=== PATIENT | male | born 1940 | race Caucasian/White ===

== ENCOUNTER → 2016-04-28 | Outpatient (CLI) | payer OTHER ==
[~2016-04-28] MED LIST: AMLO10CA PO; ASCA500 PO; ASPCH81; CALC1TAB9 PO; GLUC10007 PO; OMEG12006 PO; OPTIRAY 320 IV PRN; QVRINH80; SELE1TAB5 PO; SILD100T PO; SIMV40TA2 PO; lycopene PO; selenium PO
--- NOTE | 2016-04-28 10:02 | DIAGNOSTIC IMAGING REPORT ---
CT ANGIOGRAM OF THE BRAIN COMBO CLINICAL HISTORY: Follow-up aneurysm. COMPARISON STUDY: CT angiogram of the brain dated 04/29/2014 TECHNIQUE: Before and following the IV administration of 119 cc of Optiray 320, CT angiogram of the brain was performed from the skull base to the vertex. Images are reviewed in the axial, sagittal, and coronal planes. 3-D MIPS images are created and assessed. IV contrast was administered without complication. CT DOSE: 1027.65 mGy.cm FINDINGS: Brain parenchyma: There are age-related involutional changes noting mild subcortical and periventricular microangiopathic disease. There is no hemorrhage, mass effect, or evidence of acute territorial ischemia by CT criteria. There is no evidence of enhancing mass lesion on the angiogram phase images. No extra-axial fluid collection is seen. Monk-white matter differentiation is preserved. Ventricles, sulci, and cisterns: Prominent secondary to involutional change. CT angiogram of the brain: There is atherosclerotic calcification of the cavernous carotid and vertebral arteries. The [place] is developmentally complete. There are small bilateral posterior communicating arteries. The internal carotid arteries are patent at the skull base. There is atherosclerotic plaque and irregularity within the cavernous carotid arteries. No high-grade stenosis is seen. The anterior and middle cerebral arteries are clear. The vertebrobasilar system and posterior cerebral arteries are patent. The left vertebral artery is dominant. There is atherosclerotic irregularity identified in the diminutive right vertebral artery. 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 This is best seen on axial image #85. No additional aneurysm is seen. There is no high-grade stenosis or focal vessel cutoff identified throughout the intracranial circulation. Dural sinuses: Clear as visualized. Orbits: The bony orbits are intact. The orbital contents are normal as visualized. Sinuses and mastoids: The visualized paranasal sinuses are clear. The mastoid air cells are well pneumatized. Calvarium: Unremarkable. IMPRESSION: 1. There is no hemorrhage, mass effect, or evidence of acute territorial ischemia by CT criteria. 2. 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 3. No additional aneurysm is identified. No vessel occlusion is seen. 4. Additional changes as above. Electronically signed by: Agustin Jiang M.D. 04/28/2016 10:01 AM Dictated Date/Time: 04/28/2016 9:18 AM
== END | disposition home or self-care (01) ==
LOC: C.CTS 08:51
PROVIDERS: ATTEND Psychiatry & Neurology Neurology
DX: I67.1 Cerebral aneurysm, nonruptured (principal)

== ENCOUNTER → 2016-07-04 | Outpatient (CLI) | payer OTHER ==
[~2016-07-04] MED LIST changes: -OPTIRAY 320 IV PRN
== END | disposition home or self-care (01) ==
LOC: C.LAB 09:19
PROVIDERS: ATTEND Urology
DX: C61 Malignant neoplasm of prostate (principal)

== ENCOUNTER → 2016-10-30 | Outpatient (CLI) | payer OTHER | END | disposition home or self-care (01) | LOC: C.LAB 09:18 | PROVIDERS: ATTEND Urology | DX: C61 Malignant neoplasm of prostate (principal) ==

== ENCOUNTER → 2017-05-08 | Outpatient (CLI) | payer OTHER | END | disposition home or self-care (01) | LOC: C.LAB 08:34 | PROVIDERS: ATTEND Urology | DX: C61 Malignant neoplasm of prostate (principal) ==

== ENCOUNTER → 2017-05-18 | Outpatient (CLI) | payer OTHER | END | disposition home or self-care (01) | LOC: C.LABSPEC 14:41 | PROVIDERS: ATTEND Urology | DX: C61 Malignant neoplasm of prostate (principal); R39.9 Unspecified symptoms and signs involving the genitourinary system ==

== ENCOUNTER → 2017-10-25 | Outpatient (CLI) | payer OTHER ==
[~2017-10-25] MED LIST changes: -ASCA500 PO; +ASCO500T3 PO; -ASPCH81; +ASPI81TA28 PO; +BECL80AE7 INH; +COEN1CAP7 PO; -GLUC10007 PO; +LEVO100T PO; +MAGN250T3 PO; +PRVC/40 PO; +PYRI60TA3 PO; -QVRINH80; -SELE1TAB5 PO; -SILD100T PO; -SIMV40TA2 PO
== END | disposition home or self-care (01) ==
LOC: C.LAB 14:45
PROVIDERS: ATTEND Psychiatry & Neurology Neurology
DX: C61 Malignant neoplasm of prostate (principal); G47.00 Insomnia, unspecified

== ENCOUNTER 2023-07-31 10:45 | Inpatient (IN) ==
[2023-07-31 11:38] LABS: Basophils # (auto) 0.02 K/uL (0.00-0.20); Basophils % (auto) 0.2 %; Eosinophils # (auto) 0.02 K/uL (0.00-0.50); Eosinophils % (auto) 0.2 %; Hematocrit (blood only) 36.2 % (42.0-52.0); Hemoglobin 11.1 g/dl (14.0-18.0); Immature Granulocytes # (auto) 0.05 K/uL (0.01-0.20); Immature Granulocytes % (auto) 0.5 %; Lymphocytes % (auto) 11.4 %; Mean Corpuscular Hemoglobin 27.2 pg (25.0-34.0); Mean Corpuscular Hgb Conc 30.7 g/dL (32.0-36.0); Mean Corpuscular Volume 88.7 fL (80.0-100.0); Mean Platelet Volume 10.6 fL (9.4-12.4); Monocytes # (auto) 0.87 K/uL (0.11-0.59); Monocytes % (auto) 8.3 %; Neutrophils # (auto) 8.35 K/uL (1.40-6.50); Neutrophils % (auto) 79.4 %; Platelet Count 203 K/uL (130-400); RDW Coefficient of Variation 13.5 % (11.5-14.5); RDW Standard Deviation 43.7 fL (36.4-46.3); Red Blood Count 4.08 M/uL (4.70-6.10); White Blood Count 10.51 K/ul (4.8-10.8)
[2023-07-31 11:44] LABS: Prothrombin Time 10.7 Seconds (9.0-12.0)
[2023-07-31 11:56] LABS: Albumin Globulin Ratio 1.3 (0.9-2); BUN Creatinine Ratio 22.1 (10-20); Bilirubin,Total 0.6 mg/dl (0.2-1.0); Calcium 9.8 mg/dl (8.6-10.3); Est GFR (African American) 48.3 ml/min; Est GFR (Non-African American) 41.7 ml/min; Potassium 4.1 mmol/L (3.5-5.1)
--- NOTE | 2023-07-31 12:13 | Ultrasound Report ---
RIGHT LOWER EXTREMITY VENOUS DOPPLER CLINICAL HISTORY: Leg deep vein thrombosis (DVT) suspected . Right foot pain. COMPARISON STUDY: No previous studies for comparison. TECHNIQUE: Sonography of the deep venous system of the right lower extremity was performed. Compress ion and augmentation were evaluated. FINDINGS: The right common femoral, superficial femoral and popliteal veins were compressible. Augme ntation was normal. Flow was shown within the deep calf vessels. There is a small elongated right pop liteal fluid collection that measures 6.7 x 1.2 x 3.4 cm. IMPRESSION: 1. No evidence of deep venous thrombus within the right lower extremity. 2. Small right popliteal cyst. ACT 112: Negative or not required by law. Electronically signed by: Wero Parks M.D. 07/31/2023 12:11 PM
--- NOTE | 2023-07-31 12:15 | XRay Report ---
XR ankle RT min 3V routine CLINICAL HISTORY: swelling COMPARISON: Right ankle radiographs September 09, 2020. MRI of the right ankle September 16, 2020. FINDINGS: Alignment of the right ankle is anatomic. There is no acute fracture. Ankle soft tissue sw elling is greatest laterally. Talar dome is intact. Severe joint space narrowing of the subtalar join t is noted with possible fusion of the posterior facet. There is a small plantar calcaneal spur. IMPRESSION: 1. No fracture or dislocation within the right ankle. 2. Right ankle soft tissue swelling. 3. Severe subtalar joint osteoarthritis. ACT 112: Negative or not required by law. Electronically signed by: Wero Parks M.D. 07/31/2023 12:14 PM
--- NOTE | 2023-07-31 12:32 | Emergency Department Note ---
Impression & Plan Osteomyelitis, Cellulitis ED Provider Note NAME: IVETH GRANGER AGE: 82 SEX: M : 1940 ARRIVES VIA: Walk-In INFORMANT: [Patient][] ED PROVIDER(S): [Agustin Biggs MD] CHIEF COMPLAINT: Foot pain HISTORY OF PRESENT ILLNESS: The patient is an 82-year-old male with myasthenia gravis. The patient states that he has had some swelling of the right foot/leg for some time. Lately, he has noticed some erythema. He has a blister to the tip of the third toe. The patient is not currently on antibiotics. He has had a previous partial amputation of the right second toe. He states that there was infection that required the amputation. The patient has felt a bit weaker and washed out lately, he has not had fever, no cough or congestion. No chest pain, no vomiting. PMHx/PSHx/Social Hx: See Below PHYSICAL EXAM: GENERAL: Patient is in no acute distress. HEENT: No acute trauma, normocephalic atraumatic, mucous membranes moist, no nasal congestion. NECK: No stridor, no adenopathy, no meningismus, trachea is midline. LUNGS: Clear to auscultation bilaterally, no wheeze, no rhonchi, breath sounds equal. HEART: Without murmurs gallops or rubs, regular rate and rhythm. Heart tones are distant. ABDOMEN: Soft, nontender, no peritonitis. EXTREMITIES: No cyanosis. The patient does have a blister to the tip of the right third toe. There is some erythema spreading from this toe up the dorsum of the foot. There is warmth present. The right lower extremity is edematous when compared to the left. NEUROLOGIC: Oriented x 3, no acute motor or sensory deficits, no focal weakness. SKIN: No jaundice, no diaphoresis. DIFFERENTIAL DIAGNOSIS: Osteomyelitis, cellulitis, bacteremia, DVT, fracture, among others. EMERGENCY DEPARTMENT PROCEDURES: MEDICAL DECISION MAKING: There is no leukocytosis. The patient is anemic however, this appears to be a chronic issue for him. There was a normal platelet count. INR was not elevated. There was an elevation to the creatinine however, the patient has had some renal insufficiency previous. There was no electrolyte abnormality in need of emergent correction. No concerning liver enzyme elevation. Right ankle film did not show fracture, some arthritis was seen. Right foot CT does show osteomyelitis to the right third toe. Right lower extremity ultrasound did not show DVT. On exam, the patient did have a cellulitis of the right foot. He had an ulcer to the right third toe. A culture of the fluid seeping from the right third toe was sent for analysis. The patient was given IV Zosyn as antibiotic coverage. The patient is in need of a hospital stay. He has a cellulitis with an underlying osteomyelitis. He likely will require some type of surgical intervention. I spoke with the patient and case management, the on-call hospitalist was consulted. Prior/Outside records/notes reviewed: None Imaging/x-ray results per my interpretation: Right ankle film shows arthritis, no fracture or bony dislocation. Chronic Medical/Social conditions affecting care: Advanced age. Care/Management discussed with: Case management, the on-call hospitalist. Level of care consideration(s): After review of the information above and other included data: --I believe the patient requires escalation of care to admission DISPOSITION: Admission Past Med/Surg History Problem List (Updated 07/31/23 @ 14:27 by Agustin Biggs MD) Cellulitis (Acute) Osteomyelitis (Acute) Cellulitis of right foot Osteomyelitis of third toe of right foot Myasthenia gravis Seizure-like activity Positive DALLIN (antinuclear antibody) Dementia Ocular myasthenia gravis (Chronic) Hypothyroidism (Chronic) Cerebrovascular disease (Chronic) Cerebral aneurysm (Chronic) Myasthenia gravis (Chronic) Malignant neoplasm of prostate Sialorrhea Incontinence Urge and stress incontinence (Acute) Third nerve palsy (Acute) Impotence, organic (Acute) Neuromuscular disease or syndrome (Acute) Myopathy (Acute) Diplopia (Acute) Bulbar myasthenia gravis (Acute) Medical History Actinic keratosis Asthma Cough Renal neoplasm UTI symptoms Surgical History History of surgical removal of pilonidal cyst H/O foot surgery Hx of prostatectomy History of appendectomy Family History Sister Bulbar polio Hypercholesterolemia Mother Cardiac disorder Son Glioma Social History Smoking Status: Never smoker Hx Alcohol Use: Yes marital status: current occupational status: retired Feels Safe at Home: Yes Allergies Allergies Allergy/AdvReac Type Severity Reaction Status Date / Time Sulfa (Sulfonamide Allergy Intermediate ITCHY Verified 07/04/23 14:01 Antibiotics) Home Meds Home Medications Medication Instructions Recorded Confirmed calcium citrate 315 mg 1 tab PO DAILY 01/27/19 07/31/23 calcium-vitamin D3 6.25 mcg (250 unit) tablet (Citracal + Vitamin D Maximum) omega-3 fatty acids 500 mg capsule 500 mg PO DAILY 01/27/19 07/31/23 amlodipine 10 mg-benazepril 20 mg 1 cap PO DAILY 04/06/20 07/31/23 capsule leuprolide (4 month) 30 mg (4 30 mg IM Q16W #0 ea 04/06/20 07/31/23 month) intramuscular syringe kit levothyroxine 100 mcg tablet 100 mcg PO DAILY 04/06/20 07/31/23 mecobalamin (vitamin B12) 1,000 1,000 mcg sublingual DAILY 11/01/20 07/31/23 mcg disintegrating tablet,sublingual pravastatin 40 mg tablet 80 mg PO DAILY 06/23/21 07/31/23 prevagen 1 cap PO UD 06/23/21 07/31/23 pyridostigmine bromide 60 mg tablet 60 mg PO UD 07/31/23 07/31/23 Previous Rx's Medication Instructions Recorded memantine 10 mg tablet 10 mg PO BID 90 days #180 tabs 04/02/23 sertraline 25 mg tablet (Zoloft) 25 mg PO DAILY 90 days #90 tabs 04/02/23 mycophenolate mofetil 500 mg 500 mg PO BID 90 days #180 tabs 06/13/23 tablet (CellCept) prednisone 10 mg tablet 10 mg PO DAILY #90 tabs 06/13/23 pyridostigmine bromide 180 mg 180 mg PO BID #180 tabs 06/29/23 tablet,extended release Results & Data (ED) Vital Signs Vital Signs - 24 hr 07/31/23 10:48 Temperature 37 C Temperature Source Oral Pulse Rate 80 Respiratory Rate 16 Respiratory Depth Normal Blood Pressure 125/89 Blood Pressure Mean 101 Pulse Oximetry 98 Oxygen Delivery Method Room Air Sepsis Recent Fever Within 48 Hours No Sepsis New/Unexplained Change in Mental Status No Sepsis Action Taken by Nursing No Action Required Home Medications Current Medication List: was personally reviewed by me Laboratory Data Attestation: I reviewed the patient's lab results. 07/31/23 11:05 07/31/23 11:05 Lab Results 07/31/23 Range/Units 11:05 WBC 10.51 (4.8-10.8) K/ul RBC 4.08 L (4.70-6.10) M/uL Hgb 11.1 L (14.0-18.0) g/dl Hct 36.2 L (42.0-52.0) % MCV 88.7 (80.0-100.0) fL MCH 27.2 (25.0-34.0) pg MCHC 30.7 L (32.0-36.0) g/dL RDW Std Deviation 43.7 (36.4-46.3) fL RDW Coeff of Jon 13.5 (11.5-14.5) % Plt Count 203 (130-400) K/uL MPV 10.6 (9.4-12.4) fL Immature Gran % (Auto) 0.5 % Neut % (Auto) 79.4 % Lymph % (Auto) 11.4 % Storey % (Auto) 8.3 % Eos % (Auto) 0.2 % Baso % (Auto) 0.2 % Neut # (Auto) 8.35 H (1.40-6.50) K/uL Lymph # (Auto) 1.20 (1.20-3.40) K/uL Storey # (Auto) 0.87 H (0.11-0.59) K/uL Eos # (Auto) 0.02 (0.00-0.50) K/uL Baso # (Auto) 0.02 (0.00-0.20) K/uL Immature Gran # (Auto) 0.05 (0.01-0.20) K/uL PT 10.7 (9.0-12.0) Seconds INR 1.0 (0.9-1.1) Sodium 136 (136-145) mmol/L Potassium 4.1 (3.5-5.1) mmol/L Chloride 102 (98-107) mmol/L Carbon Dioxide 27 (21-32) mmol/L Anion Gap 7 (3-11) BUN 34 H (6-23) mg/dl Creatinine 1.54 H (0.6-1.4) mg/dl Est Cr Clr Drug Dosing 45.0 ml/min Est GFR ( Amer) 48.3 ml/min Est GFR (Non-Af Amer) 41.7 ml/min BUN/Creatinine Ratio 22.1 H (10-20) Glucose 134 H (70-99(Fasting)) mg/dl Calcium 9.8 (8.6-10.3) mg/dl Total Bilirubin 0.6 (0.2-1.0) mg/dl AST 17 (13-39) U/L ALT 13 (7-52) U/L Alkaline Phosphatase 48 (34-104) U/L B-Natriuretic Peptide 226 H (0-100) pg/ml Total Protein 7.0 (6.0-8.3) gm/dl Albumin 4.0 (3.4-5.0) gm/dl Globulin 3.0 (2.5-4.0) gm/dl Albumin/Globulin Ratio 1.3 (0.9-2) Imaging Data Radiologist's Impression: Venous Doppler Study 07/31/23 10:53 RIGHT LOWER EXTREMITY VENOUS DOPPLER CLINICAL HISTORY: Leg deep vein thrombosis (DVT) suspected . Right foot pain. COMPARISON STUDY: No previous studies for comparison. TECHNIQUE: Sonography of the deep venous system of the right lower extremity was performed. Compression and augmentation were evaluated. FINDINGS: The right common femoral, superficial femoral and popliteal veins were compressible. Augmentation was normal. Flow was shown within the deep calf vessels. There is a small elongated right popliteal fluid collection that measures 6.7 x 1.2 x 3.4 cm. IMPRESSION: 1. No evidence of deep venous thrombus within the right lower extremity. 2. Small right popliteal cyst. ACT 112: Negative or not required by law. Electronically signed by: Wero Parks M.D. 07/31/2023 12:11 PM Ankle X-Ray 07/31/23 10:57 XR ankle RT min 3V routine CLINICAL HISTORY: swelling COMPARISON: Right ankle radiographs September 09, 2020. MRI of the right ankle September 16, 2020. FINDINGS: Alignment of the right ankle is anatomic. There is no acute fracture. Ankle soft tissue swelling is greatest laterally. Talar dome is intact. Severe joint space narrowing of the subtalar joint is noted with possible fusion of the posterior facet. There is a small plantar calcaneal spur. IMPRESSION: 1. No fracture or dislocation within the right ankle. 2. Right ankle soft tissue swelling. 3. Severe subtalar joint osteoarthritis. ACT 112: Negative or not required by law. Electronically signed by: Wero Parks M.D. 07/31/2023 12:[address] 07/31/23 12:28 CT foot RT wo con HISTORY: 82 years-old Male poss osteo, distal foot, 3rd toe acute pain and swelling of the right foot with possible osteomyelitis of the third toe. COMPARISON: Right ankle radiographs of same day, right foot radiographs 09/09/2020, MRI right foot 09/16/2020 TECHNIQUE: Multiple axial CT images of the right foot were obtained without IV contrast. A dose lowering technique was used consistent with the principals of YANET. FINDINGS: There is skin thickening with diffuse subcutaneous edema. Atrophy of the intrinsic musculature. Tendons and ligaments are not well evaluated by CT technique. Arterial calcifications. No drainable fluid collections. Subcutaneous edema with possible distal ulcer of the distal third toe. Demineralized appearance to the bones. There is severe joint space narrowing with chronic appearing articular and marginal erosions of the first DIP joint. Large subcortical cyst versus benign lucent lesion of the navicular. There is cortical irregularity involving the distal and dorsal margins of the third distal phalanx with adjacent punctate bone fragments. No acute fracture or dislocation. Partial amputation of the distal second toe at the level of the PIP joint redemonstrated. IMPRESSION: 1. Ulcer with probable osteomyelitis of the third distal phalanx. 2. Diffuse subcutaneous edema may represent cellulitis, venous stasis or lymphedema. 3. No drainable fluid collections. ACT 112: Negative or not required by law. The above report was generated using voice recognition software. It may contain grammatical, syntax or spelling errors. Electronically signed by: Rickey Griffin M.D. 07/31/2023 1:05 PM Discharge Plan Visit Data Chief Complaint: Foot Injury/Pain Stated Complaint: RIGHT FOOT PAIN ED Provider: Agustin Biggs Discharge Problem: Osteomyelitis, Cellulitis Patient Disposition: Admitted As Inpatient Condition: Fair Forms Stand Alone Forms: [facility] Prescriptions Prescriptions: No Action memantine 10 mg tablet 10 mg PO BID 90 Days Qty: 180 3RF sertraline [Zoloft] 25 mg tablet 25 mg PO DAILY 90 Days Qty: 90 3RF pyridostigmine bromide 180 mg tablet extended release 180 mg PO BID Qty: 180 1RF mecobalamin (vitamin B12) 1,000 mcg tablet,disintegrating 1,000 mcg sublingual DAILY Rx Instructions: place tablet under tongue and allow to dissolve for at least30 secs before swallowing mycophenolate mofetil [CellCept] 500 mg tablet 500 mg PO BID 90 Days Qty: 180 3RF prednisone 10 mg tablet 10 mg PO DAILY Qty: 90 3RF prevagen tablet 1 cap PO UD Rx Instructions: otc. as directed calcium citrate-vitamin D3 [Citracal + D Maximum] 315 mg- 250 unit tablet 1 tab PO DAILY omega-3 fatty acids 500 mg capsule 500 mg PO DAILY amlodipine-benazepril 10-20 mg capsule 1 cap PO DAILY leuprolide (4 month) 30 mg syringe kit 30 mg IM Q16W Qty: 0 levothyroxine 100 mcg tablet 100 mcg PO DAILY pravastatin 40 mg tablet 80 mg PO DAILY pyridostigmine bromide 60 mg tablet 60 mg PO UD Rx Instructions: Fill history 07/2022 for 60 mg po qid Referrals Referrals: Gordon Palma MD [Primary Care Provider] - Discharge Problem: Osteomyelitis Qualifiers: Osteomyelitis type: unspecified type Osteomyelitis location: foot Laterality: r ight Qualified Code(s): M86.9 - Osteomyelitis, unspecified Cellulitis Qualifiers: Site of cellulitis: extremity Site of cellulitis of extremity: lower extremity Laterality: right Qualified Code(s): L03.115 - Cellulitis of right lower limb
--- NOTE | 2023-07-31 13:07 | CT Scan Report ---
CT foot RT wo con HISTORY: 82 years-old Male poss osteo, distal foot, 3rd toe acute pain and swelling of the right curt t with possible osteomyelitis of the third toe. COMPARISON: Right ankle radiographs of same day, right foot radiographs 09/09/2020, MRI right foot 09/16 TECHNIQUE: Multiple axial CT images of the right foot were obtained without IV contrast. A dose lowering technique was used consistent with the principals of YANET. FINDINGS: There is skin thickening with diffuse subcutaneous edema. Atrophy of the intrinsic musculature. Tendo ns and ligaments are not well evaluated by CT technique. Arterial calcifications. No drainable fluid collections. Subcutaneous edema with possible distal ulcer of the distal third toe. Demineralized appearance to the bones. There is severe joint space narrowing with chronic appearing a rticular and marginal erosions of the first DIP joint. Large subcortical cyst versus benign lucent le geetha of the navicular. There is cortical irregularity involving the distal and dorsal margins of the third distal phalanx with adjacent punctate bone fragments. No acute fracture or dislocation. Partial amputation of the distal second toe at the level of the PIP joint redemonstrated. IMPRESSION: 1. Ulcer with probable osteomyelitis of the third distal phalanx. 2. Diffuse subcutaneous edema may represent cellulitis, venous stasis or lymphedema. 3. No drainable fluid collections. ACT 112: Negative or not required by law. The above report was generated using voice recognition software. It may contain grammatical, syntax o r spelling errors. Electronically signed by: Rickey Griffin M.D. 07/31/2023 1:05 PM
[2023-07-31] MEDS ORDERED: VANCOMYCIN CONSULT ACTIVE PRN (13:35)
--- NOTE | 2023-07-31 13:35 | History & Physical Report ---
Date of Service July 31, 2023 Assessment & Plan (1) Osteomyelitis of third toe of right foot: Plan: -Admit to med/surge -Currently stable and non-toxic appearing -Presented to the ED with progressive right foot/3rd toe swelling, erythema, and pain since a blister opened in his right 3rd toe approximately 2 weeks ago -Patient noted to have soft tissue swelling of the right foot on xray of the ankle and likely OM of the distal right 3rd toe on CT of the right foot wo con -Patient does not have a hx of DM but is immunocompromised as he is on chronic prednisone and CellCept for Myasthenias gravis -Blood cultures and culture from the right third toe have been collected -Will start with Vancomycin and Ceftriaxone for now as he is stable and non- toxic appearing >If he were to clinically decline would broaden abx -Will obtain arterial doppler of the RLE with BOZENA -Spoke with Dr. Sarah Sampson of Podiatry, she will see the patient shortly, consult placed -Will make NPO at midnight in case of OR tomorrow -Will obtain CXR and ECG if pre-operative clearance is needed -Will obtain procal and ESR -Pain control with tylenol for now -If patient requires OR may need stress dosed steroids -HH diet -SQ lovenox for DVT PPX -AM CBC, BMP, mag (2) Cellulitis of right foot: Plan: -Continue Ceftriaxone and Vancomycin for now -Follow infectious workup (3) Myasthenia gravis: Plan: -Will continue prednisone, Cellcept, and Mestinon (4) Dementia: Plan: -Continue memantine (5) Hypothyroidism: Plan: -Continue levothyroxine Plan The patient was discussed with Dr. Bustamante at the time of the admission History of Present Illness Chief Complaint: right foot swelling/erythema Primary Care Provider: Gordon Palma MD Ezio is an 82 year old male with a PMH significant for Myasthenias gravis (on CellCept, low-dose prednisone, and Mestinon), Dementia, prostate cancer status post radical retropubic prostatectomy May 1999 who subsequently had a recurrence with radiation in 2007, HTN, hypothyroidism who presented to the [facility] ED on 07/31/23 with complaints of progressive swelling, erythema, and pain of the right foot. He remained stable in the ED. Labs including CBC and CMP were unremarkable, BNP was elevated at 226. Venous doppler of the RLE was negative for DVT. Xray of the right ankle was read as "1. No fracture or dislocation within the right ankle. 2. Right ankle soft tissue swelling. 3. Severe subtalar joint osteoarthritis.". And CT of the right foot wo con was read as "1. Ulcer with probable osteomyelitis of the third distal phalanx. 2. Diffuse subcutaneous edema may represent cellulitis, venous stasis or lymphedema. 3. No drainable fluid collections.". Prior to admission the patient was ordered a dose of zosyn. AT the time of the exam the patient was sitting in bed in no acute distress with his bedside, history was obtained from both. 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 Approximately 2-3 weeks ago he started to develop a blister on the distal aspect of his right 3rd phalanx. This subsequently opened and has become progressively more swollen, tender, and erythematous. Denies pain at rest but significant pain with ambulation. Denies recent fever, chills, chest pain, abd pain,nausea, vomiting, diarrhea, dysuria, hematuria, melena, and recent trauma. He is a full code and his is his POA. Please refer to Dr. Bustamante's attestation for any changes to the treatment plan Allergies Allergy/AdvReac Type Severity Reaction Status Date / Time Sulfa (Sulfonamide Allergy Intermediate ITCHY Verified 07/04/23 14:01 Antibiotics) Home Medications Medication Instructions Recorded Confirmed Type calcium citrate 315 mg 1 tab PO DAILY 01/27/19 07/31/23 History calcium-vitamin D3 6.25 mcg (250 unit) tablet (Citracal + Vitamin D Maximum) omega-3 fatty acids 500 mg capsule 500 mg PO DAILY 01/27/19 07/31/23 History amlodipine 10 mg-benazepril 20 mg 1 cap PO DAILY 04/06/20 07/31/23 History capsule leuprolide (4 month) 30 mg (4 30 mg IM Q16W #0 ea 04/06/20 07/31/23 History month) intramuscular syringe kit levothyroxine 100 mcg tablet 100 mcg PO DAILY 04/06/20 07/31/23 History mecobalamin (vitamin B12) 1,000 1,000 mcg sublingual DAILY 11/01/20 07/31/23 History mcg disintegrating tablet,sublingual pravastatin 40 mg tablet 80 mg PO DAILY 06/23/21 07/31/23 History prevagen 1 cap PO UD 06/23/21 07/31/23 History memantine 10 mg tablet 10 mg PO BID 90 days #180 tabs 04/02/23 07/31/23 Rx sertraline 25 mg tablet (Zoloft) 25 mg PO DAILY 90 days #90 tabs 04/02/23 07/31/23 Rx mycophenolate mofetil 500 mg 500 mg PO BID 90 days #180 tabs 06/13/23 07/31/23 Rx tablet (CellCept) prednisone 10 mg tablet 10 mg PO DAILY #90 tabs 06/13/23 07/31/23 Rx pyridostigmine bromide 180 mg 180 mg PO BID #180 tabs 06/29/23 07/31/23 Rx tablet,extended release pyridostigmine bromide 60 mg tablet 60 mg PO UD 07/31/23 07/31/23 History Past Med/Surg History Problem List (Updated 07/31/23 @ 14:05 by Gildardo Vargas PA-C) Cellulitis of right foot Osteomyelitis of third toe of right foot Myasthenia gravis Seizure-like activity Positive DALLIN (antinuclear antibody) Dementia Ocular myasthenia gravis (Chronic) Hypothyroidism (Chronic) Cerebrovascular disease (Chronic) Cerebral aneurysm (Chronic) Myasthenia gravis (Chronic) Malignant neoplasm of prostate Sialorrhea Incontinence Urge and stress incontinence (Acute) Third nerve palsy (Acute) Impotence, organic (Acute) Neuromuscular disease or syndrome (Acute) Myopathy (Acute) Diplopia (Acute) Bulbar myasthenia gravis (Acute) Medical History Myasthenia gravis Actinic keratosis Asthma Cough Renal neoplasm UTI symptoms Surgical History History of surgical removal of pilonidal cyst H/O foot surgery Hx of prostatectomy History of appendectomy Family History Sister Bulbar polio Hypercholesterolemia Mother Cardiac disorder Son Glioma Social History Smoking Status: Never smoker Hx Alcohol Use: Yes marital status: current occupational status: retired Feels Safe at Home: Yes Physical Exam Physical Exam: Physical Exam: General: In no acute distress, stated age, well-nourished, good hygiene HEENT: Normocephalic, atraumatic, no scleral icterus, pupils around round, symmetrical, and reactive to light, moist mucus membranes, trachea midline, no thyromegaly Chest/Pulm: No respiratory distress, symmetrical chest expansion, clear breath sounds throughout Cardiac: RRR, no murmurs noted Abdomen: Negative for ascites and bruising, normoactive bowel sounds, soft, non-tender to palpation throughout Musculoskeletal: Distal aspect of right 3rd toe has an open ulcer with purulent drainage and erythema tracking proximally, no acute trauma noted Extremities: Radial, dorsalis pedis, and posterior tibial pulses are intact and symmetrical, swelling of the right foot due to current cellulitis Skin: 3rd right toe findings as described above, patient also with erythema and swelling of the skin from the distal right foot to the mid right foot, no erythema noted in the right ankle Neuro: Alert and oriented to person, place, month, year, and president, no focal defects, no tremors noted Psych: No acute distress, calm and cooperative during the exam Results & Data Results & Data Vital Signs (Past 12 Hours) Vital Signs Temp Pulse Resp BP Pulse Ox O2 Del Method 07/31/23 10:48 37 C 80 16 125/89 98 Room Air Laboratory Results Abnormal lab results 07/31/23 Range/Units 11:05 RBC 4.08 L (4.70-6.10) M/uL Hgb 11.1 L (14.0-18.0) g/dl Hct 36.2 L (42.0-52.0) % MCHC 30.7 L (32.0-36.0) g/dL Neut # (Auto) 8.35 H (1.40-6.50) K/uL [place] # (Auto) 0.87 H (0.11-0.59) K/uL BUN 34 H (6-23) mg/dl Creatinine 1.54 H (0.6-1.4) mg/dl BUN/Creatinine Ratio 22.1 H (10-20) Glucose 134 H (70-99(Fasting)) mg/dl B-Natriuretic Peptide 226 H (0-100) pg/ml Diagnostic Findings Venous Doppler Study 07/31/23 10:53 RIGHT LOWER EXTREMITY VENOUS DOPPLER CLINICAL HISTORY: Leg deep vein thrombosis (DVT) suspected . Right foot pain. COMPARISON STUDY: No previous studies for comparison. TECHNIQUE: Sonography of the deep venous system of the right lower extremity was performed. Compression and augmentation were evaluated. FINDINGS: The right common femoral, superficial femoral and popliteal veins were compressible. Augmentation was normal. Flow was shown within the deep calf vessels. There is a small elongated right popliteal fluid collection that measures 6.7 x 1.2 x 3.4 cm. IMPRESSION: 1. No evidence of deep venous thrombus within the right lower extremity. 2. Small right popliteal cyst. ACT 112: Negative or not required by law. Electronically signed by: Wero Parks M.D. 07/31/2023 12:11 PM Ankle X-Ray 07/31/23 10:57 XR ankle RT min 3V routine CLINICAL HISTORY: swelling COMPARISON: Right ankle radiographs September 09, 2020. MRI of the right ankle September 16, 2020. FINDINGS: Alignment of the right ankle is anatomic. There is no acute fracture. Ankle soft tissue swelling is greatest laterally. Talar dome is intact. Severe joint space narrowing of the subtalar joint is noted with possible fusion of the posterior facet. There is a small plantar calcaneal spur. IMPRESSION: 1. No fracture or dislocation within the right ankle. 2. Right ankle soft tissue swelling. 3. Severe subtalar joint osteoarthritis. ACT 112: Negative or not required by law. Electronically signed by: Wero Parks M.D. 07/31/2023 12:[address] 07/31/23 12:28 CT foot RT wo con HISTORY: 82 years-old Male poss osteo, distal foot, 3rd toe acute pain and swelling of the right foot with possible osteomyelitis of the third toe. COMPARISON: Right ankle radiographs of same day, right foot radiographs 09/09/2020, MRI right foot 09/16/2020 TECHNIQUE: Multiple axial CT images of the right foot were obtained without IV contrast. A dose lowering technique was used consistent with the principals of ALARA. FINDINGS: There is skin thickening with diffuse subcutaneous edema. Atrophy of the intrinsic musculature. Tendons and ligaments are not well evaluated by CT technique. Arterial calcifications. No drainable fluid collections. Subcutaneous edema with possible distal ulcer of the distal third toe. Demineralized appearance to the bones. There is severe joint space narrowing wit h chronic appearing articular and marginal erosions of the first DIP joint. Large subcortical cyst versus benign lucent lesion of the navicular. There is cortical irregularity involving the distal and dorsal margins of the third distal phalanx with adjacent punctate bone fragments. No acute fracture or dislocation. Partial amputation of the distal second toe at the level of the PIP joint redemonstrated. IMPRESSION: 1. Ulcer with probable osteomyelitis of the third distal phalanx. 2. Diffuse subcutaneous edema may represent cellulitis, venous stasis or lymphedema. 3. No drainable fluid collections. ACT 112: Negative or not required by law. The above report was generated using voice recognition software. It may contain grammatical, syntax or spelling errors. Electronically signed by: Rickey Griffin M.D. 07/31/2023 1:05 PM Code Status & VTE Plan Code Status Full code VTE Prophylaxis Plan VTE Prophylaxis will be ordered: Yes Supervising Physician Co-Signing Physician Notes Patient seen and examined, chart reviewed, case discussed with Gildardo Vargas PA-C and I agree with the assessment and plan as above except as otherwise noted Labs and images reviewed 82-year-old male who was seen in the ER with a history of myasthenia gravis on steroids/CellCept/Mestinon who presents with a right foot infection and is found ulcer with probable osteomyelitis of the right third phalanx with suspected overlying cellulitis. Ortho was consulted. He is not toxic/septic appearing. He is on Rocephin/vancomycin on admission. Podiatry is consulted. CRP is ordered and trended. Agree with above PG Care Time/CCT Total # of Minutes Spent Total Time Spent with Patient: Total time spent is greater than 50% in coordination of care (as documented) at patient's floor/unit and/or counseling patient: Coding [place] [address] INT INP/OBS CARE 3/75MIN Patient Type Established History Comprehensive Exam Comprehensive Medical Decision Making High Complexity Diagnoses Osteomyelitis of third toe of right foot M86.9 Cellulitis of right foot L03.115 Myasthenia gravis G70.00 Dementia F03.90 Hypothyroidism E03.9
[2023-07-31] MEDS ORDERED: ACETAMINOPHEN 325 MG TAB PO PRN (14:08)
[2023-07-31 14:36] LABS: C Reactive Protein 10.28 mg/dl (0-0.5)
[2023-07-31] MEDS: PIPERACILLIN/TAZOBACTAM 4.5 GM/120 ML BAG IV ONE (14:38)
[2023-07-31] MEDS: VANCOMYCIN HCL 2,000 MG in SODIUM CHLORIDE 0.9% 500 ML IV STA (14:38)
[2023-07-31] MEDS: cefTRIAXone SODIUM 2,000 MG/50 ML BAG IV STA (14:38)
--- NOTE | 2023-07-31 16:06 | XRay Report ---
SINGLE VIEW CHEST CLINICAL HISTORY: Preoperative examination FINDINGS: An AP upright chest radiograph is compared to study dated 02/14/2016. The examination is de graded by portable technique and apical lordotic positioning. The heart is enlarged noting atheroscle rotic calcification of the thoracic aorta. The pulmonary vasculature is noncongested. Chronic interst itial thickening similar to previous. There is chronic elevation of the left hemidiaphragm. Atelectas is is noted at the lung bases. No airspace consolidation or large pleural effusion is identified. No pneumothorax is seen. The skeletal structures are osteopenic. The bony thorax is grossly intact. IMPRESSION: Cardiomegaly with no active disease in the chest. ACT 112: Negative or not required by law. Electronically signed by: Agustin Jiang M.D. 07/31/2023 4:04 PM
--- NOTE | 2023-07-31 16:13 | Ultrasound Report ---
US arterial duplex LE RT HISTORY: 82 years-old Male right foot osteomyelitis and cellulitis COMPARISON: CT right foot of same day TECHNIQUE: Segmental pressures of the lower legs were obtained along with numerous sonographic images of the right lower extremity arterial structures assessing grayscale appearance, color and spectral flow FINDINGS: Segmental pressures: Right: BOZENA of 1.29; left: BOZENA of 1.34 Atherosclerosis. Subcutaneous edema limits evaluation of the arterial structures. No arterial occlusi on identified. Triphasic waveforms above the level of the knee. Biphasic and monophasic waveforms in the lower leg. No significantly elevated peak systolic velocities identified to suggest high-grade st enosis. IMPRESSION: 1. Normal ABIs. 2. Atherosclerosis without arterial occlusion or evidence of high-grade stenosis. ACT 112: Negative or not required by law. The above report was generated using voice recognition software. It may contain grammatical, syntax o r spelling errors. Electronically signed by: Rickey Griffin M.D. 07/31/2023 4:11 PM
--- NOTE | 2023-07-31 16:56 | Podiatry Consultation ---
Date of Consultation July 31, 2023 Assessment & Plan (1) Osteomyelitis: Laterality: right Osteomyelitis location: foot Osteomyelitis type: unspecified type Qualified Code(s): M86.9 - Osteomyelitis, unspecified (2) Cellulitis of right foot: Plan Pt examined and evaluated in the ED. NPO at midnight. Plan for right 3rd toe amputation with cultures tomorrow 08/01/23. Can continue IV antibiotics empirically, for now. Would benefit from ID consult for antibiotic recommendations, especially if infection is more extensive after surgery. Could benefit from vascular consult if wound healing is delayed, but BOZENA/arterial studies are encouraging. Will continue to follow. History of Present Illness Reason for Consultation: right 3rd toe ulcer with osteomyelitis Requesting Physician: Gildardo Vargas MD Attending Physician: Amado Bustamante MD History of Present Illness Patient presented to ED with his for a right foot infection. Patient is a poor historian regarding the duration of the right third toe wound. Patient is being admitted for his right foot cellulitis and suspected osteomyelitis of his right 3rd toe. Chart reviewed in detail. Allergies Allergy/AdvReac Type Severity Reaction Status Date / Time Sulfa (Sulfonamide Allergy Intermediate ITCHY Verified 07/04/23 14:01 Antibiotics) Home Medications Medication Instructions Recorded Confirmed Type calcium citrate 315 mg 1 tab PO DAILY 01/27/19 07/31/23 History calcium-vitamin D3 6.25 mcg (250 unit) tablet (Citracal + Vitamin D Maximum) omega-3 fatty acids 500 mg capsule 500 mg PO DAILY 01/27/19 07/31/23 History amlodipine 10 mg-benazepril 20 mg 1 cap PO DAILY 04/06/20 07/31/23 History capsule leuprolide (4 month) 30 mg (4 30 mg IM Q16W #0 ea 04/06/20 07/31/23 History month) intramuscular syringe kit levothyroxine 100 mcg tablet 100 mcg PO DAILY 04/06/20 07/31/23 History mecobalamin (vitamin B12) 1,000 1,000 mcg sublingual DAILY 11/01/20 07/31/23 History mcg disintegrating tablet,sublingual pravastatin 40 mg tablet 80 mg PO DAILY 06/23/21 07/31/23 History prevagen 1 cap PO UD 06/23/21 07/31/23 History memantine 10 mg tablet 10 mg PO BID 90 days #180 tabs 04/02/23 07/31/23 Rx sertraline 25 mg tablet (Zoloft) 25 mg PO DAILY 90 days #90 tabs 04/02/23 07/31/23 Rx mycophenolate mofetil 500 mg 500 mg PO BID 90 days #180 tabs 06/13/23 07/31/23 Rx tablet (CellCept) prednisone 10 mg tablet 10 mg PO DAILY #90 tabs 06/13/23 07/31/23 Rx pyridostigmine bromide 180 mg 180 mg PO BID #180 tabs 06/29/23 07/31/23 Rx tablet,extended release pyridostigmine bromide 60 mg tablet 60 mg PO UD 07/31/23 07/31/23 History Patient History Medical History Actinic keratosis Asthma Cough Renal neoplasm UTI symptoms Surgical History History of surgical removal of pilonidal cyst H/O foot surgery Hx of prostatectomy History of appendectomy Family History Sister Bulbar polio Hypercholesterolemia Mother Cardiac disorder Son Glioma Social History Smoking Status: Never smoker Second Hand Exposure: No; Do You Dip or Chew Tobacco: No; Hx Alcohol Use: Yes Alcohol type: beer Hx Substance Use: No Preferred Language: Urdu Communication Ability: Effective Sales And Customer Relations Rep Required: No Beliefs That Will Affect Care: None marital status: Current Living Situation: Spouse current occupational status: retired Other Information That Helps Us Care for You: No Feels Safe at Home: Yes Safety Concerns: Feels Safe At This Time Assistive Devices: Cane and Glasses Review of Systems Review of Systems: All systems reviewed & are unremarkable except as noted in HPI & below Constitutional: no fever and no chills Eyes: no problem reported Ear, Nose, Mouth, Throat: no problem reported Respiratory: no problem reported Cardiovascular: no problem reported Gastrointestinal: no problem reported Musculoskeletal: third toe ulcer Integumentary: + skin ulcer, + wounds and + erythema Neurologic: + paresthesia Psychiatric: no behavioral changes and no problem reported Physical Exam Physical Exam: Lower extremity focused exam: DP/PT pulses nonpalpable. CFT brisk to digits. Right foot edematous with ulceration to the third toe. Wound measures 1.0x0.8cm and probes deep to distal phalanx without difficulty.. No significant purulent drainage. No underlying abcess/fluctuance palpable. Local erythema extending to the foot with calor noted. Pain on palpation of toe, consistent with ulceration, but protective sensation diminished overall. Constitutional: well developed and well nourished Eyes: PERRL, conjunctivae normal, anicteric sclerae ENMT: external ear and nose normal, oropharynx normal Neck: trachea midline, no thyromegaly Respiratory: normal respiratory effort; no respiratory distress Cardiovascular: Rate/Rhythm: regular rate and regular rhythm Vessels: + posterior tibial pulses abnormal (diminished 2/2 pedal edema) and + dorsalis pedis pulses abnormal (diminished 2/2 pedal edema) Extremities: normal capillary refill and + pedal edema Chest (Breasts): Chest: normal inspection of chest Gastrointestinal (Abdomen): Inspection/Auscultation: abdomen normal to inspection Musculoskeletal: Head/Neck/Chest: normocephalic and head atraumatic Extremities: + limited ROM of extremities, + amputation noted and + foot abnormality (pes planus) Skin: + ulcer, + wound (distal right 3rd toe), + skin atrophy and + nails dystrophic Neurologic: moves all extremities and awake; + abnormal sensation to monofilament Psychiatric: A+Ox3, euthymic affect Results & Data Vital Signs (Past 12 Hours) Vital Signs Temp Pulse Pulse Resp BP BP Pulse Ox 07/31/23 16:39 36.8 C 76 16 156/68 H 98 07/31/23 16:00 78 14 93 07/31/23 16:00 159/82 H 07/31/23 15:59 77 15 95 07/31/23 14:50 73 07/31/23 14:30 144/69 H 07/31/23 14:30 76 14 07/31/23 14:17 74 13 07/31/23 10:48 37 C 80 16 125/89 98 O2 Del Method 07/31/23 16:39 Room Air 07/31/23 16:00 07/31/23 16:00 07/31/23 15:59 07/31/23 14:50 07/31/23 14:30 07/31/23 14:30 07/31/23 14:17 07/31/23 10:48 Room Air Diagnostic Findings CT right foot demonstrates osseous lysis of distal phalanx of right third toe.
[2023-07-31] MEDS ORDERED: Nursing to Pharmacy Communication SCH (17:45)
--- NOTE | 2023-07-31 17:45 | Electrocardiogram Report ---
Test Reason : Blood Pressure : / mmHG Vent. Rate : 073 BPM Atrial Rate : 073 BPM P-R Int : 136 ms QRS Dur : 126 ms QT Int : 400 ms P-R-T Axes : 025 055 025 degrees QTc Int : 440 ms Normal sinus rhythm Right bundle branch block Abnormal ECG When compared with ECG of 05-NOV-2000 17:57, Right bundle branch block is now Present Confirmed by Dyllan Garrison ([id number]) on 07/31/2023 5:45:38 PM Referred By: REFERRED SELF Confirmed By:Hansel Garrison
[2023-07-31] MEDS: MYCOPHENOLATE MOFETIL 250 MG CAP PO SCH (19:07)
[2023-07-31] MEDS: PRAVASTATIN SOD 40 MG TAB PO SCH (19:07)
[2023-07-31] MEDS: MEMANTINE HCL 10 MG TAB PO SCH (19:07)
[2023-07-31] MEDS: ENOXAPARIN INJ 40 MG/0.4 ML SYR SQ SCH (19:07)
[2023-07-31] MEDS ORDERED: MYCOPHENOLATE MOFETIL 250 MG CAP PO SCH (21:00)
[2023-07-31] MEDS ORDERED: PYRIDOSTIGMINE SUSTAINED REL 180 MG TABCR PO SCH (21:00)
[2023-07-31] MEDS ORDERED: MEMANTINE HCL 10 MG TAB PO SCH (21:00)
[2023-08-01] MEDS: VANCOMYCIN HCL 1,250 MG in SODIUM CHLORIDE 0.9% 250 ML IV SCH (04:09)
[2023-08-01] MEDS: LEVOTHYROXINE SODIUM 100 MCG TABLET PO SCH (05:28)
[2023-08-01 07:35] LABS: Basophils # (auto) 0.02 K/uL (0.00-0.20); Basophils % (auto) 0.3 %; Eosinophils # (auto) 0.05 K/uL (0.00-0.50); Eosinophils % (auto) 0.8 %; Hematocrit (blood only) 33.2 % (42.0-52.0); Hemoglobin 10.4 g/dl (14.0-18.0); Immature Granulocytes # (auto) 0.02 K/uL (0.01-0.20); Immature Granulocytes % (auto) 0.3 %; Lymphocytes # (auto) 1.19 K/uL (1.20-3.40); Lymphocytes % (auto) 18.9 %; Mean Corpuscular Hemoglobin 27.6 pg (25.0-34.0); Mean Corpuscular Hgb Conc 31.3 g/dL (32.0-36.0); Mean Corpuscular Volume 88.1 fL (80.0-100.0); Mean Platelet Volume 10.5 fL (9.4-12.4); Monocytes # (auto) 0.68 K/uL (0.11-0.59); Monocytes % (auto) 10.8 %; Neutrophils # (auto) 4.32 K/uL (1.40-6.50); Neutrophils % (auto) 68.9 %; Platelet Count 172 K/uL (130-400); RDW Coefficient of Variation 13.3 % (11.5-14.5); RDW Standard Deviation 43.1 fL (36.4-46.3); Red Blood Count 3.77 M/uL (4.70-6.10); White Blood Count 6.28 K/ul (4.8-10.8)
--- NOTE | 2023-08-01 07:57 | Hospitalist Progress Note ---
Date of Service August 01, 2023 Assessment & Plan (1) Osteomyelitis of third toe of right foot: Plan: Ezio is an 82 year old male with a PMH significant for Myasthenias gravis (on CellCept, low-dose prednisone, and Mestinon), Dementia, prostate cancer status post radical retropubic prostatectomy May 1999 who subsequently had a recurrence with radiation in 2007, HTN, hypothyroidism who presented to the ED with R 3rd toe SSTI and underlying toe osteomyelitis based on CT of foot. CRP 10 and ESR only 44. venous duplex neg for DVT. art duplex reassuring for healing with normal ABIs, atherosclerosis without any high-grade stenoses or occlusion -auto tire recapper consulted, R 3rd toe amp 07/[address] Sampson -immunocompromised as he is on chronic prednisone and CellCept for Myasthenias gravis -consider stress dose steroids for OR depending on degree of anesthesia needed - if local/regional only probably does not need stress dose and would be safer than general if possible because of his myasthenia gravis -continue empiric antibiotics - ceftriaxone and vancomycin -follow cultures - staph prelim, follow up path Reviewed EKG tracing - sinus, RBBB CXR - clear, osteopenia, atherosclerosis noted seen postop doing well, evaluated for discharge - gait unsteady and has stairs so ordered PT eval with surgical shoe - walked 100 feet with walker but needs more gait training for safe home discharge, HH recommended -PT session tomorrow and reassess -discussed plan of care with auto tire recapper - follow up Sunday in office (2) Cellulitis of right foot: Plan: -Continue Ceftriaxone and Vancomycin for now -Follow infectious workup (3) Myasthenia gravis: Plan: -Will continue prednisone, Cellcept, and Mestinon takes pyridostigmine SR 180 bid (noon & mn?) we do not have SR discussed conversion to short acting with pharmacist - no direct conversion -his to bring in his med today Plan BNP elevated 226 CKD stage 3 - Cr stable compared to previous baseline. monitor, avoid nephrotoxins Hypothyroidism - cont levothyroxine Dementia - cont memantine Admission and Anticipated Discharge Date Admission Date: July 31, 2023 Subjective seen postop. doing well. no R foot pain. no dyspnea or CP uses cane at home and has 3 stories with stairs Physical Exam 2 Physical Exam: PHYSICAL EXAMINATION Last 24h vital signs reviewed, see documentation in flowsheet General: comfortable appearing, no distress HEENT: Normocephalic, atraumatic, pupils round and equal, sclerae anicteric, no conjunctival injection, moist mucus membranes Lungs: Normal respiratory effort. Clear to auscultation bilaterally. No RRW Heart: Regular rate and rhythm, no murmurs. No JVD Abdomen: Soft, nontender, nondistended. Bowel sounds present. Extremities: Warm, dry, well-perfused. right foot in surgical dressing and Osmar wrap no strikethrough Neuro: Alert and oriented x 4, face symmetric, moves 4 extremities well Psych: Normal affect and behavior Results & Data Results & Data Vital Signs (Past 12 Hours) Vital Signs O2 Del Method 07/31/23 23:57 Room Air Laboratory Results 08/01/23 07:11 08/01/23 09:01 PG Care Time/CCT Total # of Minutes Spent Total Time Spent with Patient: Total time spent is greater than 50% in coordination of care (as documented) at patient's floor/unit and/or counseling patient: Coding Level of Care Code 25864 SUB INP/OBS CARE 3/50MIN Diagnoses Osteomyelitis of third toe of right foot M86.9 Cellulitis of right foot L03.115 Myasthenia gravis G70.00
--- NOTE | 2023-08-01 08:42 | Anesthesiology Consultation ---
Date of Service August 01, 2023 Assessment & Plan (1) Encounter for pre-operative examination: Chart Review Chart Review: Acceptable Risk for Surgery and Patient NOT seen in Pre Admission Testing Consults Requested none History Surgery Operation Date: 08/01/23 09:50 Proposed Procedures p Right 3rd Toe Amputation - Sarah Sampson DPM Height/Weight Height: 6 ft 4 in Weight: 95 kg Allergies Allergy/AdvReac Type Severity Reaction Status Date / Time Sulfa (Sulfonamide Allergy Intermediate ITCHY Verified 07/04/23 14:01 Antibiotics) Medications Home Medications Medication Instructions Recorded Confirmed Last Taken calcium citrate 315 mg 1 tab PO DAILY 01/27/19 07/31/23 Unknown calcium-vitamin D3 6.25 mcg (250 unit) tablet (Citracal + Vitamin D Maximum) omega-3 fatty acids 500 mg capsule 500 mg PO DAILY 01/27/19 07/31/23 Unknown amlodipine 10 mg-benazepril 20 mg 1 cap PO DAILY 04/06/20 07/31/23 Unknown capsule leuprolide (4 month) 30 mg (4 30 mg IM Q16W #0 ea 04/06/20 07/31/23 Unknown month) intramuscular syringe kit levothyroxine 100 mcg tablet 100 mcg PO DAILY 04/06/20 07/31/23 Unknown mecobalamin (vitamin B12) 1,000 1,000 mcg sublingual DAILY 11/01/20 07/31/23 Unknown mcg disintegrating tablet,sublingual pravastatin 40 mg tablet 80 mg PO DAILY 06/23/21 07/31/23 Unknown prevagen 1 cap PO UD 06/23/21 07/31/23 Unknown memantine 10 mg tablet 10 mg PO BID 90 days #180 tabs 04/02/23 07/31/23 Unknown sertraline 25 mg tablet (Zoloft) 25 mg PO DAILY 90 days #90 tabs 04/02/23 07/31/23 Unknown mycophenolate mofetil 500 mg 500 mg PO BID 90 days #180 tabs 06/13/23 07/31/23 Unknown tablet (CellCept) prednisone 10 mg tablet 10 mg PO DAILY #90 tabs 06/13/23 07/31/23 Unknown pyridostigmine bromide 180 mg 180 mg PO BID #180 tabs 06/29/23 07/31/23 Unknown tablet,extended release pyridostigmine bromide 60 mg tablet 60 mg PO UD 07/31/23 07/31/23 Unknown Active Medications Generic Name Dose Route Start Last Admin Trade Name Freq PRN Reason Stop Dose Admin Enoxaparin Sodium 40 mg 07/31/23 21:00 07/31/23 19:07 Enoxaparin Inj 40 Mg/0.4 Ml Syr SQ 08/30/23 20:59 40 mg Q24H KAYLAN Administration Vancomycin HCl 1,250 mg/ 275 mls @ 200 mls/hr 08/01/23 04:00 08/01/23 05:30 Sodium Chloride IV 09/12/23 03:59 Infused Q24H KAYLAN Infusion Protocol Levothyroxine Sodium 100 mcg 08/01/23 06:30 08/01/23 05:28 Levothyroxine Sodium 100 Mcg Tablet PO 08/31/23 06:29 100 mcg DAILYBB KAYLAN Administration Memantine 10 mg 07/31/23 18:30 07/31/23 19:07 Memantine Hcl 10 Mg Tab PO 08/30/23 18:29 10 mg BID@0900,1800 KAYLAN Administration Miscellaneous 1 each 07/31/23 17:45 07/31/23 23:25 Mestinon~Order Awaiting Action N/A 08/30/23 17:44 Not Given QS KAYLAN Mycophenolate Mofetil 500 mg 07/31/23 18:45 07/31/23 19:07 Mycophenolate Mofetil 250 Mg Cap PO 08/30/23 18:44 500 mg BID@0900,1800 KAYLAN Administration Pravastatin Sodium 80 mg 07/31/23 21:00 07/31/23 19:07 Pravastatin Sod 40 Mg Tab PO 08/30/23 20:59 80 mg HS KAYLAN Administration Past Medical History Medical History (Updated 08/01/23 @ 08:58 by Koko Coronel MD) Encounter for pre-operative examination Chronic kidney disease (CKD) stage G3a/A2, moderately decreased glomerular filtration rate (GFR) between 45-59 mL/min/1.73 square meter and albuminuria creatinine ratio between 30-299 mg/g Osteomyelitis of third toe of right foot Third nerve palsy Incontinence Cerebrovascular disease Dementia Myasthenia gravis Neuromuscular disease or syndrome Hypothyroidism Actinic keratosis Asthma Cough Renal neoplasm UTI symptoms Patient with osteomyelitis of third toe of right foot Patient on chronic prednisone therapy. venous duplex neg for DVT. art duplex (3) Myasthenia gravis: Plan: -Will continue prednisone, Cellcept, and Mestinon takes pyridostigmine SR 180 bid (noon & mn?) we do not have SR discussed conversion to short acting with pharmacist Past Family History Family History Sister Bulbar polio Hypercholesterolemia Mother Cardiac disorder Son Glioma Past Surgical History Surgical History History of surgical removal of pilonidal cyst H/O foot surgery Hx of prostatectomy History of appendectomy Social History Smoking Status: Never smoker Do You Dip or Chew Tobacco: No Hx Alcohol Use: Yes Alcohol type: beer alcohol intake frequency: holidays/special occasions only Hx Substance Use: No substance use type: does not use Physical Exam Vital Signs Last Vital Signs Temp 36.6 C 08/01/23 08:08 Pulse 75 08/01/23 08:08 Resp 18 08/01/23 08:08 BP 141/68 H 08/01/23 08:08 Pulse Ox 95 08/01/23 08:08 O2 Del Method Room Air 08/01/23 08:08 Testing Laboratory Results 08/01/23 07:11 07/31/23 11:05 PT 11.0 Seconds (9.0-12.0) 08/01/23 07:11 INR 1.0 (0.9-1.1) 08/01/23 07:11 07/31/23 13:18 Gram Stain - Final Toe,Right Third Electrocardiogram Date: 07/31/23 DICTATED BY: Dyllan Garrison MD Test Reason : Blood Pressure : / mmHG Vent. Rate : 073 BPM Atrial Rate : 073 BPM P-R Int : 136 ms QRS Dur : 126 ms QT Int : 400 ms P-R-T Axes : 025 055 025 degrees QTc Int : 440 ms Normal sinus rhythm Right bundle branch block Abnormal ECG When compared with ECG of 05-NOV-2000 17:57, Right bundle branch block is now Present Confirmed by Dyllan Garrison ([id number]) on 07/31/2023 5:45:38 PM Chest X-Ray Date: 07/31/23 SINGLE VIEW CHEST CLINICAL HISTORY: Preoperative examination FINDINGS: An AP upright chest radiograph is compared to study dated 02/14/2016. The examination is degraded by portable technique and apical lordotic positioning. The heart is enlarged noting atherosclerotic calcification of the thoracic aorta. The pulmonary vasculature is noncongested. Chronic interstitial thickening similar to previous. There is chronic elevation of the left hemidiaphragm. Atelectasis is noted at the lung bases. No airspace consolidation or large pleural effusion is identified. No pneumothorax is seen. The skeletal structures are osteopenic. The bony thorax is grossly intact. IMPRESSION: Cardiomegaly with no active disease in the chest. Other Testing Brain MRI 07/05/21: MR brain wo con HISTORY: 80 years-old Male F03.90 - Unspecified dementia without behavioral d COMPARISON: CTA head 02/01/2018 TECHNIQUE: Multiplanar multisequence MRI of the brain was obtained without contrast FINDINGS: No restricted diffusion. Degenerative changes of the imaged cervical spine. Megacisterna magna. No acute intracranial hemorrhage, midline shift, abnormal extra axial collection, hydrocephalus or intracranial mass. Age-related involutional changes with ventriculomegaly, likely secondary to ex vacuo change. Transverse dimension of the lateral ventricles measures 4.9 cm. Mild scattered T2/FLAIR hyperintense foci are noted throughout the white matter. Cerebral venous sinuses and major arterial flow voids are patent. Prior bilateral lens repair. Mastoid air cells and paranasal sinuses are clear. Unremarkable skull and soft tissues. IMPRESSION: 1. No acute intracranial abnormality. No acute or subacute infarct. 2. Involutional changes with mild chronic microvascular ischemic disease.
[2023-08-01] MEDS ORDERED: PRAVASTATIN SOD 40 MG TAB PO SCH (09:00)
[2023-08-01 09:37] LABS: Creatinine Clr Calc Pharmacy 52.7 ml/min; Est GFR (African American) 56.7 ml/min; Est GFR (Non-African American) 48.9 ml/min
--- NOTE | 2023-08-01 10:33 | Pharmacy Report ---
Pharmacy PK ABX Note - Date of Service August 01, 2023 - Assessment and Plan Assessment 82 year old M receiving empiric vancomycin + ceftriaxone for treatment of osteomyelitis of third right toe and LE cellulitis. s/p third right toe amputation. PMH significant for myasthenias gravis (on mycophenolate and low dose prednisone), dementia, prostate cancer s/p radical retropubic prostatectomy. Pertinent microbiologic data includes: * BC x 2 pending * R third toe culture Plan Vancomycin * Loading dose: 2000 mg IV x 1 * Maintenance dose: 1250 mg IV every 24 hours * Regimen is predicted to achieve target AUC/HOLLY of 400-600 mg/L.hr. * predicted AUC at steady state: 514 * Trough level ordered for: 05/16 AM - level obtained early due to risk factors for drug accumulation Pharmacy will continue to follow and will adjust dose/frequency as necessary. Thank you. Pharmacy has transitioned to AUC monitoring for vancomycin. AUC/HOLLY is the preferred PK/PD target and is associated with decreased risk of nephrotoxicity compared to traditional trough targets.
[2023-08-01] MEDS: predniSONE 10 MG TABLET PO SCH (10:58)
[2023-08-01] MEDS ORDERED: ONDANSETRON INJ 2 MG/ML 2 ML VIAL IV PRN (11:40)
[2023-08-01] MEDS ORDERED: ePHEDrine sulfate 50 MG/ML AMP IV PRN (11:40)
[2023-08-01] MEDS ORDERED: fentaNYL citrate PF 100 MCG/2 ML VIAL IV PRN (11:40)
[2023-08-01] MEDS ORDERED: ATROPINE SULFATE 0.1 MG/ML 10ML SYR IV PRN (11:40)
[2023-08-01] MEDS ORDERED: HYDROmorphone INJ 1 MG/ML SYRINGE IV PRN (11:40)
[2023-08-01] MEDS: LACTATED RINGER'S 1,000 ML IV SCH (12:00)
--- NOTE | 2023-08-01 12:02 | History & Physical Bridge Note ---
Date of Service August 01, 2023 History & Physical Bridge Note I have examined the patient, reviewed the History & Physical and in the interval since the performance of the History & Physical I have noted the following changes of clinical significance: no changes noted
[2023-08-01] MEDS ORDERED: PROPOFOL IV EMULSION 10 MG/ML 20 ML VIAL IV ONE (12:16)
[2023-08-01] MEDS ORDERED: LIDOCAINE 2% 2 ML VIAL/AMP(20MG/ML) INFIL ONE (12:16)
[2023-08-01] MEDS ORDERED: fentaNYL citrate PF 100 MCG/2 ML VIAL ONE (12:17)
[2023-08-01] MEDS ORDERED: ONDANSETRON INJ 2 MG/ML 2 ML VIAL ONE (12:42)
[2023-08-01] MEDS: BUPIVACAINE 0.25% PF 30 ML VIAL ONE (12:56)
--- NOTE | 2023-08-01 13:01 | Post Operative Brief Note ---
Immediate Post Op Note v1 Date of Surgery August 01, 2023 Pre & Post Diagnosis Operation Date: 08/01/23 09:50 Pre-Op Diagnosis: Osteomyelitis of the right third phalanx Post-Op Diagnosis: Osteomyelitis of the right third phalanx I identified the patient and participated in the time-out.: Yes Procedure Operation Date: 08/01/23 09:50 Actual Procedures p Right 3rd Toe Amputation(Right) - Sarah Sampson DPM Surgeon Sarah Sampson DPM Building Rigger none Estimated Blood Loss 10 Findings Consistent with Post-Op Diagnosis Specimens right third toe to pathology right third toe tissue for aerobic and anerobic cultures swab culture of right 3rd toe Anesthesia Type MAC Complications none Disposition Accompanied Patient To Recovery: Yes
--- NOTE | 2023-08-01 13:29 | Anesthesiology Progress Note ---
Date of Service August 01, 2023 Anesthesia Post Procedure Vital Signs Vital Signs: Temp Pulse Pulse Pulse Resp BP BP 08/01/23 13:20 68 19 139/72 08/01/23 13:10 67 12 137/72 08/01/23 13:00 36.0 C L 71 15 139/70 08/01/23 11:21 36.6 C 69 20 144/86 H 08/01/23 08:08 36.6 C 75 18 141/68 H 07/31/23 23:57 07/31/23 19:48 36.8 C 78 16 129/66 07/31/23 16:39 36.8 C 76 16 156/68 H 07/31/23 16:00 78 14 07/31/23 16:00 159/82 H 07/31/23 15:59 77 15 07/31/23 14:50 73 07/31/23 14:30 144/69 H 07/31/23 14:30 76 14 07/31/23 14:17 74 13 Pulse Ox O2 Del Method 08/01/23 13:20 95 Room Air 08/01/23 13:10 96 Room Air 08/01/23 13:00 93 Room Air 08/01/23 11:21 96 Room Air 08/01/23 08:08 95 Room Air 07/31/23 23:57 Room Air 07/31/23 19:48 94 Room Air 07/31/23 16:39 98 Room Air 07/31/23 16:00 93 07/31/23 16:00 07/31/23 15:59 95 07/31/23 14:50 07/31/23 14:30 07/31/23 14:30 07/31/23 14:17 Transfer of Care Handoff Completed per policy Notes Mental Status: alert / awake / arousable and participated in evaluation Patient Amnestic to Procedure: Yes Nausea / Vomiting: adequately controlled Pain: adequately controlled Airway Patency, RR, SpO2: stable & adequate BP & HR: stable & adequate Hydration State: stable & adequate Anesthetic Complications: no major complications apparent
[2023-08-01] MEDS: ENALAPRIL MALEATE 10 MG TAB PO SCH (14:20)
[2023-08-01] MEDS: amLODIPine BESYLATE 5 MG TAB PO SCH (14:20)
[2023-08-01] MEDS: SERTRALINE HCL 50 MG TABLET PO SCH (14:21)
[2023-08-01] MEDS: cefTRIAXone SODIUM 2,000 MG/50 ML BAG IV SCH (14:22)
[2023-08-01] MEDS: PYRIDOSTIGMINE SUSTAINED REL 180 MG TABCR PO SCH (14:22)
[2023-08-02 04:34] LABS: Basophils # (auto) 0.04 K/uL (0.00-0.20); Basophils % (auto) 0.5 %; Eosinophils # (auto) 0.05 K/uL (0.00-0.50); Eosinophils % (auto) 0.7 %; Hematocrit (blood only) 33.8 % (42.0-52.0); Hemoglobin 10.7 g/dl (14.0-18.0); Immature Granulocytes # (auto) 0.02 K/uL (0.01-0.20); Immature Granulocytes % (auto) 0.3 %; Lymphocytes # (auto) 0.86 K/uL (1.20-3.40); Lymphocytes % (auto) 11.7 %; Mean Corpuscular Hemoglobin 27.7 pg (25.0-34.0); Mean Corpuscular Hgb Conc 31.7 g/dL (32.0-36.0); Mean Corpuscular Volume 87.6 fL (80.0-100.0); Mean Platelet Volume 10.5 fL (9.4-12.4); Monocytes # (auto) 0.75 K/uL (0.11-0.59); Monocytes % (auto) 10.2 %; Neutrophils # (auto) 5.66 K/uL (1.40-6.50); Neutrophils % (auto) 76.6 %; Platelet Count 203 K/uL (130-400); RDW Coefficient of Variation 13.4 % (11.5-14.5); RDW Standard Deviation 42.3 fL (36.4-46.3); Red Blood Count 3.86 M/uL (4.70-6.10); White Blood Count 7.38 K/ul (4.8-10.8)
[2023-08-02 04:52] LABS: BUN Creatinine Ratio 20.1 (10-20); Calcium 9.2 mg/dl (8.6-10.3); Creatinine Clr Calc Pharmacy 53.1 ml/min; Est GFR (African American) 57.2 ml/min; Est GFR (Non-African American) 49.3 ml/min; Potassium 4.4 mmol/L (3.5-5.1)
[2023-08-02] MEDS: VANCOMYCIN LEVEL ONE (05:01)
--- NOTE | 2023-08-02 10:03 | Pharmacy Report ---
Pharmacy PK ABX Note - Date of Service August 02, 2023 - Assessment and Plan Assessment 08/02/2023 Vancomycin random level resulted this AM ~10. Due to severity of infection, increased dosing to target higher AUC. Will change to 1500 mg Q24h Pertinent microbiologic data includes: * BC x 2 - No growth * R third toe culture - pending Staph sensitivity results 08/01/2023 82 year old M receiving empiric vancomycin + ceftriaxone for treatment of osteomyelitis of third right toe and LE cellulitis. s/p third right toe amputation. PMH significant for myasthenias gravis (on mycophenolate and low dose prednisone), dementia, prostate cancer s/p radical retropubic prostatectomy. Pertinent microbiologic data includes: * BC x 2 pending * R third toe culture Plan Vancomycin * vancomycin dosing 1500 mg Q24h * Regimen is predicted to achieve target AUC/HOLLY of 400-600 mg/L.hr. * predicted AUC at steady state: 570 * will consider reordering trough in the next 2-3 days Pharmacy will continue to follow and will adjust dose/frequency as necessary. Thank you. Pharmacy has transitioned to AUC monitoring for vancomycin. AUC/HOLLY is the preferred PK/PD target and is associated with decreased risk of nephrotoxicity compared to traditional trough targets.
--- NOTE | 2023-08-02 13:15 | Podiatry Progress Note ---
Date of Service August 02, 2023 Assessment & Plan (1) Osteomyelitis: (2) Cellulitis of right foot: Plan Pt examined and evaluated. he is doing well today 1 day status post digital amputation. He should be old to be discharged today or tomorrow with oral antibiotics for 2 weeks. Inpatient rehab can be beneficial given his medical history otherwise. We will plan on seeing him tomorrow before discharge for a dressing change. Then he can be followed up outpatient in our office, likely at 2 weeks for suture removal. If he is discharged prior to seeing him tomorrow, to [facility], we would recommend redressing with sterile dry dressings every 3-4 days. Discussed these plans with the patient who is amenable to this. Admission and Anticipated Discharge Date Admission Date: July 31, 2023 Subjective patient seen at bedside. No new concerns since surgery yesterday. Pain is well controlled and he is feeling better overall. Denies any new concerns. Review of Systems Constitutional: no fever and no chills Eyes: no problem reported Ear, Nose, Mouth, Throat: no problem reported Respiratory: no problem reported Cardiovascular: no problem reported Gastrointestinal: no problem reported Musculoskeletal: third toe ulcer Integumentary: + skin ulcer, + wounds and + erythema Neurologic: + paresthesia Psychiatric: no behavioral changes and no problem reported Physical Exam Physical Exam: Lower extremity focused exam: DP/PT pulses nonpalpable. CFT brisk to digits. Third toe amputation noted with sutures intact. Dressing clean, dry, intact. No significant purulent drainage. No underlying abcess/fluctuance palpable. Local erythema extending to the foot with calor noted. Pain on palpation of toe, consistent with ulceration, but protective sensation diminished overall. Constitutional: well developed and well nourished Eyes: PERRL, conjunctivae normal, anicteric sclerae ENMT: external ear and nose normal, oropharynx normal Neck: trachea midline, no thyromegaly Respiratory: normal respiratory effort; no respiratory distress Cardiovascular: Rate/Rhythm: regular rate and regular rhythm Vessels: + posterior tibial pulses abnormal (diminished 2/2 pedal edema) and + dorsalis pedis pulses abnormal (diminished 2/2 pedal edema) Extremities: normal capillary refill and + pedal edema Chest (Breasts): Chest: normal inspection of chest Gastrointestinal (Abdomen): Inspection/Auscultation: abdomen normal to inspection Musculoskeletal: Head/Neck/Chest: normocephalic and head atraumatic Extremities: + limited ROM of extremities, + amputation noted and + foot abnormality (pes planus) Skin: + ulcer, + wound (distal right 3rd toe), + skin atrophy and + nails dystrophic Neurologic: moves all extremities and awake; + abnormal sensation to monofilament Psychiatric: A+Ox3, euthymic affect Results & Data Results & Data Vital Signs (Past 12 Hours) Vital Signs Temp Pulse Resp BP Pulse Ox O2 Del Method 08/02/23 07:56 36.6 C 67 16 140/71 96 Room Air 08/02/23 03:30 36.9 C 69 14 149/69 H 96 Room Air (1) Osteomyelitis Laterality: right Osteomyelitis location: foot Osteomyelitis type: unspecified type Qualified Code(s): M86.9 - Osteomyelitis, unspecified
[2023-08-02] MEDS: VANCOMYCIN HCL 1,500 MG in SODIUM CHLORIDE 0.9% 500 ML IV SCH (15:36)
--- NOTE | 2023-08-02 17:55 | Hospitalist Progress Note ---
Date of Service August 02, 2023 Assessment & Plan (1) Osteomyelitis of third toe of right foot: Plan: Ezio is an 82 year old male with a PMH significant for Myasthenias gravis (on CellCept, low-dose prednisone, and Mestinon), Dementia, prostate cancer status post radical retropubic prostatectomy May 1999 who subsequently had a recurrence with radiation in 2007, HTN, hypothyroidism who presented to the ED with R 3rd toe SSTI and underlying toe osteomyelitis based on CT of foot. CRP 10 and ESR only 44. venous duplex neg for DVT. art duplex reassuring for healing with normal ABIs, atherosclerosis without any high-grade stenoses or occlusion -chemical plant operator supervisor consulted, R 3rd toe amp 07/[address] Sampson -immunocompromised as he is on chronic prednisone and CellCept for Myasthenias gravis -follow cultures - MSSA from wound cx, operative cx pending, follow up path -abx to cefazolin to cover MSSA unsteady walking with surgical shoe. referred to [facility], planned for tomorrow. discussed with chemical plant operator supervisor (2) Cellulitis of right foot: Plan: initially ceftriaxone and vancomycin, narrowed to cefazolin (3) Myasthenia gravis: Plan: -Will continue prednisone, Cellcept, and Mestinon cont pyridostigmine SR 180 bid Plan BNP elevated 226 CKD stage 3 - Cr stable compared to previous baseline at 1.34. monitor, avoid nephrotoxins Hypothyroidism - cont levothyroxine Dementia - cont memantine Admission and Anticipated Discharge Date Admission Date: July 31, 2023 Subjective doing well no foot pain no weakness or MG flare remains unsteady walking with surgical shoe Physical Exam 2 Physical Exam: PHYSICAL EXAMINATION Last 24h vital signs reviewed, see documentation in flowsheet General: comfortable appearing, no distress HEENT: Normocephalic, atraumatic, pupils round and equal, sclerae anicteric, no conjunctival injection, moist mucus membranes Lungs: Normal respiratory effort. Heart: Abdomen: nondistended. Extremities: Warm, dry, well-perfused. right foot in surgical dressing and Osmar wrap. RLE wwp. No LE edema Neuro: Alert and oriented x 4, face symmetric, moves 4 extremities well Psych: Normal affect and behavior Results & Data Results & Data Vital Signs (Past 12 Hours) Vital Signs Temp Pulse Resp BP Pulse Ox O2 Del Method 08/02/23 15:40 36.8 C 67 16 127/66 94 Room Air 08/02/23 07:56 36.6 C 67 16 140/71 96 Room Air Laboratory Results 08/02/23 03:57 08/02/23 03:57 PG Care Time/CCT Total # of Minutes Spent Total Time Spent with Patient: Total time spent is greater than 50% in coordination of care (as documented) at patient's floor/unit and/or counseling patient: Coding Level of Care Code 10705 SUB INP/OBS CARE 2/35MIN Diagnoses Osteomyelitis of third toe of right foot M86.9 Cellulitis of right foot L03.115 Myasthenia gravis G70.00
[2023-08-02] MEDS: ceFAZolin 2000MG 2,000 MG/15 ML SYR IV SCH (19:18)
[2023-08-03] MEDS ORDERED: cephALEXin 500 MG CAP PO SCH (17:00)
--- NOTE | 2023-08-03 18:29 | Discharge Summary ---
Discharge Summary Date of Service August 03, 2023 Notes For Next Care Provider pathology from third toe amputation pending Medication Changes From Visit added cefadroxil x 2 weeks Admission HPI Per Admitting Provider Ezio is an 82 year old male with a PMH significant for Myasthenias gravis (on CellCept, low-dose prednisone, and Mestinon), Dementia, prostate cancer status post radical retropubic prostatectomy May 1999 who subsequently had a recurrence with radiation in 2007, HTN, hypothyroidism who presented to the [facility] ED on 07/31/23 with complaints of progressive swelling, erythema, and pain of the right foot. He remained stable in the ED. Labs including CBC and CMP were unremarkable, BNP was elevated at 226. Venous doppler of the RLE was negative for DVT. Xray of the right ankle was read as "1. No fracture or dislocation within the right ankle. 2. Right ankle soft tissue swelling. 3. Severe subtalar joint osteoarthritis.". And CT of the right foot wo con was read as "1. Ulcer with probable osteomyelitis of the third distal phalanx. 2. Diffuse subcutaneous edema may represent cellulitis, venous stasis or lymphedema. 3. No drainable flu id collections.". Prior to admission the patient was ordered a dose of zosyn. AT the time of the exam the patient was sitting in bed in no acute distress with his bedside, history was obtained from both. 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 Approximately 2-3 weeks ago he started to develop a blister on the distal aspect of his right 3rd phalanx. This subsequently opened and has become progressively more swollen, tender, and erythematous. Denies pain at rest but significant pain with ambulation. Denies recent fever, chills, chest pain, abd pain,nausea, vomiting, diarrhea, dysuria, hematuria, melena, and recent trauma. He is a full code and his is his POA. Principal Dx & Hospital Course #1 = Principal Diagnosis (1) Osteomyelitis of third toe of right foot: Ezio is an 82 year old male with a PMH significant for Myasthenias gravis and immunosuppression (on CellCept, low-dose prednisone, and Mestinon), Dementia, prostate cancer status post radical retropubic prostatectomy May 1999 who subsequently had a recurrence with radiation in 2007, HTN, hypothyroidism who presented to the ED with R 3rd toe SSTI and underlying toe osteomyelitis based on CT of foot. CRP 10 and ESR only 44. venous duplex neg for DVT. art duplex reassuring for healing with normal ABIs, atherosclerosis without any high-grade stenoses or occlusion -registered nurse first assistant consulted, R 3rd toe amp 07/[address] Sampson -immunocompromised as he is on chronic prednisone and CellCept for Myasthenias gravis -follow cultures - MSSA from wound cx, operative cx also with MSSA, follow up path - was on appropriate IV antibiotics coverage since admission, eventually transition to cefazolin for MSSA, discharge with 2 weeks of cefadroxil - 2 weeks course recommended by registered nurse first assistant - may weight-bear as tolerated with surgical shoe on right, follow-up with p odiatrist unsteady walking with surgical shoe. [facility] (2) Cellulitis of right foot: initially ceftriaxone and vancomycin, narrowed to cefazolin as above (3) Myasthenia gravis: -Will continue prednisone, Cellcept, and Mestinon cont pyridostigmine SR 180 bid Plan BNP elevated 226 without clinical evidence of heart failure CKD stage 3 - Cr stable compared to previous baseline at 1.34. monitor, avoid nephrotoxins Hypothyroidism - cont levothyroxine Dementia - cont memantine Discharge Exam PHYSICAL EXAMINATION Last 24h vital signs reviewed, see documentation in flowsheet General: comfortable appearing, no distress HEENT: Normocephalic, atraumatic, pupils round and equal, sclerae anicteric, no conjunctival injection, moist mucus membranes Lungs: Normal respiratory effort. clear to auscultation bilaterally Heart: regular no murmurs rubs or gallops Abdomen: nondistended. Extremities: Warm, dry, well-perfused. right foot in fresh surgical dressing and Osmar wrap. RLE wwp. No LE edema Neuro: Alert and oriented x hospital and situation though seems forgetful, face symmetric, moves 4 extremities well Psych: Normal affect and behavior Updated Medication List Medication Instructions Recorded Confirmed Type calcium citrate 315 mg 1 tab PO DAILY 01/27/19 07/31/23 History calcium-vitamin D3 6.25 mcg (250 unit) tablet (Citracal + Vitamin D Maximum) omega-3 fatty acids 500 mg capsule 500 mg PO DAILY 01/27/19 07/31/23 History amlodipine 10 mg-benazepril 20 mg 1 cap PO DAILY 04/06/20 07/31/23 History capsule leuprolide (4 month) 30 mg (4 30 mg IM Q16W #0 ea 04/06/20 07/31/23 History month) intramuscular syringe kit levothyroxine 100 mcg tablet 100 mcg PO DAILY 04/06/20 07/31/23 History mecobalamin (vitamin B12) 1,000 1,000 mcg sublingual DAILY 11/01/20 07/31/23 History mcg disintegrating tablet,sublingual pravastatin 40 mg tablet 80 mg PO DAILY 06/23/21 07/31/23 History prevagen 1 cap PO UD 06/23/21 07/31/23 History memantine 10 mg tablet 10 mg PO BID 90 days #180 tabs 04/02/23 07/31/23 Rx sertraline 25 mg tablet (Zoloft) 25 mg PO DAILY 90 days #90 tabs 04/02/23 07/31/23 Rx mycophenolate mofetil 500 mg 500 mg PO BID 90 days #180 tabs 06/13/23 07/31/23 Rx tablet (CellCept) prednisone 10 mg tablet 10 mg PO DAILY #90 tabs 06/13/23 07/31/23 Rx pyridostigmine bromide 180 mg 180 mg PO BID #180 tabs 06/29/23 07/31/23 Rx tablet,extended release pyridostigmine bromide 60 mg tablet 60 mg PO UD 07/31/23 07/31/23 History acetaminophen 325 mg tablet 650 mg (2 x 325 mg) PO Q6H PRN #0 08/01/23 Rx tabs cefadroxil 1 gram tablet 1,000 mg PO Q12H 14 days #28 tabs 08/03/23 Rx Hospital Stay Data Consultations 07/31/23 13:19 ED Decision to Admit Stat 07/31/23 14:03 Consult Podiatry Routine Procedures Performed Operation Date: 08/01/23 09:50 Actual Procedures p Right 3rd Toe Amputation(Right) - Sarah Sampson DPM Diagnostic Imagining Performed 07/31/23 10:53 US venous doppler LE RT Urgent 07/31/23 12:28 CT foot RT wo con Stat 07/31/23 13:57 US doppler leg [US arterial duplex LE RT] Routine Venous Doppler Study 07/31/23 10:53 RIGHT LOWER EXTREMITY VENOUS DOPPLER CLINICAL HISTORY: Leg deep vein thrombosis (DVT) suspected . Right foot pain. COMPARISON STUDY: No previous studies for comparison. TECHNIQUE: Sonography of the deep venous system of the right lower extremity was performed. Compression and augmentation were evaluated. FINDINGS: The right common femoral, superficial femoral and popliteal veins were compressible. Augmentation was normal. Flow was shown within the deep calf vessels. There is a small elongated right popliteal fluid collection that measures 6.7 x 1.2 x 3.4 cm. IMPRESSION: 1. No evidence of deep venous thrombus within the right lower extremity. 2. Small right popliteal cyst. ACT 112: Negative or not required by law. Electronically signed by: Wero Parks M.D. 07/31/2023 12:11 PM Ankle X-Ray 07/31/23 10:57 XR ankle RT min 3V routine CLINICAL HISTORY: swelling COMPARISON: Right ankle radiographs September 09, 2020. MRI of the right ankle September 16, 2020. FINDINGS: Alignment of the right ankle is anatomic. There is no acute fracture. Ankle soft tissue swelling is greatest laterally. Talar dome is intact. Severe joint space narrowing of the subtalar joint is noted with possible fusion of the posterior facet. There is a small plantar calcaneal spur. IMPRESSION: 1. No fracture or dislocation within the right ankle. 2. Right ankle soft tissue swelling. 3. Severe subtalar joint osteoarthritis. ACT 112: Negative or not required by law. Electronically signed by: Wero Parks M.D. 07/31/2023 12:[address] 07/31/23 12:28 CT foot RT wo con HISTORY: 82 years-old Male poss osteo, distal foot, 3rd toe acute pain and swelling of the right foot with possible osteomyelitis of the third toe. COMPARISON: Right ankle radiographs of same day, right foot radiographs 09/09/2020, MRI right foot 09/16/2020 TECHNIQUE: Multiple axial CT images of the right foot were obtained without IV contrast. A dose lowering technique was used consistent with the principals of ALARA. FINDINGS: There is skin thickening with diffuse subcutaneous edema. Atrophy of the intrinsic musculature. Tendons and ligaments are not well evaluated by CT technique. Arterial calcifications. No drainable fluid collections. Subcutaneous edema with possible distal ulcer of the distal third toe. Demineralized appearance to the bones. There is severe joint space narrowing with chronic appearing articular and marginal erosions of the first DIP joint. Large subcortical cyst versus benign lucent lesion of the navicular. There is cortical irregularity involving the distal and dorsal margins of the third distal phalanx with adjacent punctate bone fragments. No acute fracture or dislocation. Partial amputation of the distal second toe at the level of the PIP joint redemonstrated. IMPRESSION: 1. Ulcer with probable osteomyelitis of the third distal phalanx. 2. Diffuse subcutaneous edema may represent cellulitis, venous stasis or lymphedema. 3. No drainable fluid collections. ACT 112: Negative or not required by law. The above report was generated using voice recognition software. It may contain grammatical, syntax or spelling errors. Electronically signed by: Rickey Griffin M.D. 07/31/2023 1:05 PM Duplex Scan Lower Extremity Artery 07/31/23 13:57 US arterial duplex LE RT HISTORY: 82 years-old Male right foot osteomyelitis and cellulitis COMPARISON: CT right foot of same day TECHNIQUE: Segmental pressures of the lower legs were obtained along with numerous sonographic images of the right lower extremity arterial structures assessing grayscale appearance, color and spectral flow FINDINGS: Segmental pressures: Right: BOZENA of 1.29; left: BOZENA of 1.34 Atherosclerosis. Subcutaneous edema limits evaluation of the arterial structures. No arterial occlusion identified. Triphasic waveforms above the level of the knee. Biphasic and monophasic waveforms in the lower leg. No significantly elevated peak systolic velocities identified to suggest high-grade stenosis. IMPRESSION: 1. Normal ABIs. 2. Atherosclerosis without arterial occlusion or evidence of high-grade stenosis. ACT 112: Negative or not required by law. The above report was generated using voice recognition software. It may contain grammatical, syntax or spelling errors. Electronically signed by: Rickey Griffin M.D. 07/31/2023 4:11 PM Chest X-Ray 07/31/23 14:09 SINGLE VIEW CHEST CLINICAL HISTORY: Preoperative examination FINDINGS: An AP upright chest radiograph is compared to study dated 02/14/2016. The examination is degraded by portable technique and apical lordotic positioning. The heart is enlarged noting atherosclerotic calcification of the thoracic aorta. The pulmonary vasculature is noncongested. Chronic interstitial thickening similar to previous. There is chronic elevation of the left hemidiaphragm. Atelectasis is noted at the lung bases. No airspace consolidation or large pleural effusion is identified. No pneumothorax is seen. The skeletal structures are osteopenic. The bony thorax is grossly intact. IMPRESSION: Cardiomegaly with no active disease in the chest. ACT 112: Negative or not required by law. Electronically signed by: Agustin Jiang M.D. 07/31/2023 4:04 PM Pending Results Patient Have Any Pending Studies at Discharge: Yes Discharge Instructions Given to Patient (Per Discharging Provider) Right 3rd toe infection - toe was amputated because there was infection in the bone Take antibiotics orally for two weeks and follow up with registered nurse first assistant Dr. Sarah Sampson in about 2 weeks for suture removal You may walk as tolerated wearing the surgical shoe. Pathology from the toe is pending. Cultures with MSSA PT and OT evaluate and treat wound care: change sterile dry dressings every 3-4 days. Home Health Attestation I certify that this patient is under my care and that I, or a physicians sourcing assistant working with me, had a face to-face encounter that meets the home health [id number] encounter requirements with this patient. The encounter with the patient was in whole, or in part, for the following medical condition, which is the primary reason for home health care (list medical condition): I certify that, based on my findings, the following services are medically necessary home health services: My clinical findings support the need for the above services because: Further, I certify that my clinical findings support that this patient is homebound (i.e. absences from home require considerable and taxing effort and are for medical reasons or [employer] services or infrequently or of short duration when for other reasons) because: Certification for Home Health Services: Based on the above findings, I certify that this patient is confined to the home and needs intermittent mcc care, physical therapy and/or speech therapy or continues to need occupational therapy. The patient is under my care, and I have initiated the establishment of the plan of care. This patient will be followed by a physician who will periodically review the plan of care. Total Time Total Time Spent Total Time Spent (In Minutes): I personally spent: 40 minutes today on clinical care activities including: reviewing chart notes and vital signs reviewing studies discussion with animal care specialist examining and counseling the patient writing discharge orders and instructionsorders documentation Coding Level of Care Code 96437 INP/OBS DISCH >30 MIN Diagnoses Osteomyelitis of third toe of right foot M86.9 Cellulitis of right foot L03.115 Myasthenia gravis G70.00
--- NOTE | 2023-08-03 20:56 | Podiatry Progress Note ---
Date of Service August 03, 2023 Assessment & Plan (1) Osteomyelitis: (2) Cellulitis of right foot: Plan Pt examined and evaluated. he is doing well today 2 days s/p digital amputation. Foot cleaned and redressed in new sterile, postoperative dressing. Can be left on for up to one week and changed at inpatient rehab as needed or in our office, if needed. Ok to d/c to [facility] or similar, if stable per medicine. Will continue to followup regularly outpatient. Admission and Anticipated Discharge Date Admission Date: July 31, 2023 Subjective Seen at bedside, pending dc to inpatient rehab. No new concerns. Pain well tolerated. No issues with dressing. Has been ambulating with surgical shoe. No s/s of infection. Review of Systems Constitutional: no fever and no chills Eyes: no problem reported Ear, Nose, Mouth, Throat: no problem reported Respiratory: no problem reported Cardiovascular: no problem reported Gastrointestinal: no problem reported Musculoskeletal: third toe ulcer Neurologic: + paresthesia Psychiatric: no behavioral changes and no problem reported Physical Exam Physical Exam: Lower extremity focused exam: DP/PT pulses nonpalpable. CFT brisk to digits. Amputation noted with sutures intact. No new evidence of infection. Pain on palpation of surgical site consistent with level of surgical intervention. No ascending cellulitis. Constitutional: well developed and well nourished Eyes: PERRL, conjunctivae normal, anicteric sclerae ENMT: external ear and nose normal, oropharynx normal Neck: trachea midline, no thyromegaly Respiratory: normal respiratory effort; no respiratory distress Cardiovascular: Rate/Rhythm: regular rate and regular rhythm Vessels: + posterior tibial pulses abnormal (diminished 2/2 pedal edema) and + dorsalis pedis pulses abnormal (diminished 2/2 pedal edema) Extremities: normal capill kaci refill and + pedal edema Chest (Breasts): Chest: normal inspection of chest Gastrointestinal (Abdomen): Inspection/Auscultation: abdomen normal to inspection Musculoskeletal: Head/Neck/Chest: normocephalic and head atraumatic Extremities: + limited ROM of extremities, + amputation noted and + foot abnormality (pes planus) Skin: + ulcer, + wound (distal right 3rd toe), + skin atrophy and + nails dystrophic Neurologic: moves all extremities and awake; + abnormal sensation to monofilament Psychiatric: A+Ox3, euthymic affect (1) Osteomyelitis Laterality: right Osteomyelitis location: foot Osteomyelitis type: unspecified type Qualified Code(s): M86.9 - Osteomyelitis, unspecified
--- NOTE | 2023-08-06 10:27 | Operative Report ---
Post Operative Report Pre & Post Diagnosis Operation Date: 08/01/23 09:50 Pre-Op Diagnosis: Osteomyelitis of the right third phalanx Post-Op Diagnosis: Osteomyelitis of the right third phalanx I identified the patient and participated in the time-out.: Yes Procedure Operation Date: 08/01/23 09:50 Actual Procedures p Right 3rd Toe Amputation(Right) - Sarah Sampson DPM Surgeon Sarah Sampson DPM Psychiatry Instructor none Estimated Blood Loss 10 Findings Consistent with Post-Op Diagnosis Specimens right 3rd toe sent to pathology. Wound cultures obtained from right 3rd toe. Anesthesia Type MAC Complications none Disposition Accompanied Patient To Recovery: Yes Indications This patient is a 82-year-old male presented to the emergency department with an infected ulcer right 3rd toe with suspected underlying osteomyelitis. Patient was evaluated at [facility] emergency department. Patient was admitted to hospital to receive IV antibiotics for his right foot cellulitis and infected 3 rd toe wound. I reviewed the patients imaging and I recommend a right 3rd toe amputation. Discussed the possible risks including but not limited to infection, swelling, wound dehiscence, blood clots, deep venous thrombosis, pulmonary embolism, chronic pain, nerve injury, numbness, phantom pain, transfer lesions, loss of limb, loss of life, failure of procedure and need for additional procedures. Patient states that he understands these risks, benefits, alternatives surgery and wants to proceed. The surgical consent was reviewed and signed. Description of Procedure The patient was brought back to the operating room and placed on the operating table in supine position. A timeout was performed in order to identify the patient, the planned procedure and correct side limb. Following monitored anesthesia care per the anesthesiologist a right forefoot block was performed utilizing 20 cc of of 0.5% Marcaine plain under aseptic technique. The right lower external was then scrubbed prepped and draped in usual aseptic manner. No tourniquet was utilized. Attention was then directed to the right third digit at the metatarsophalangeal joint where two semi-elliptical incisions were made with a 15 blade. The incision was deepened down to the level of the metatarsophalangeal joint. All bleeders were cauterized as necessary. The third toe was disarticulated and passed from the operative field. Cultures were obtained from the 3rd toe ulcer and the 3rd toe was sent pathology. Copious saline was utilized to irrigate the surgical wound. No proximal evidence of purulent drainage was identified. The deep tissue layer was coapted utilizing 3-0 Monocryl. The skin was coapted utilizing 4-0 nylon in interrupted horizontal mattress fashion. Dressing consisting of Xeroform 4 x 4's Kerlix and Osmar bandage was applied. The patient tolerated the procedure and anesthesia well all vital signs stable And Vascular status intact to the right foot. The patient was transferred to recovery for brief postoperative monitoring will be transferred back to the floor for continued antibiotic management. The patients bandage should stay dry, clean, and, intact. He may weight bear as tolerated in a surgical shoe. Patient is cleared to be discharged from a podiatry standpoint and recommend the patient discharged on po antibiotics. Patient to follow as outpatient 1 week s/p surgery. I attest to the content of the Intraoperative Record and any orders documented therein. Any exceptions are noted below.
== END 2023-08-03 14:50 | disposition home or self-care (01) | DRG 504 ==
LOC: ED 10:45 → 3N 13:35 → SUATTDRO 13:35 → 3N 16:14